=== PATIENT | male | born 1990 | race Caucasian/White ===

== ENCOUNTER 2021-04-22 23:38 | Emergency (ER) | payer SELFPAY ==
[~2021-04-22] VITALS: Ht 180.3 cm; Wt 72.6 kg
[2021-04-22 23:45] VITALS: BP_SYST 120
[2021-04-23 00:44] VITALS: BP_SYST 120
== END 2021-04-23 00:44 | disposition left against medical advice (07) ==
LOC: SED 23:38
DX: R06.02 Shortness of breath (principal); J45.909 Unspecified asthma, uncomplicated; Z20.822 Contact with and (suspected) exposure to COVID-19
CPT/HCPCS: 36415; 71045; 99284